=== PATIENT | male | born 1970 ===

== ENCOUNTER 2018-04-11 19:55 | Emergency (ER) | payer SELFPAY ==
[2018-04-11 20:35] VITALS: BP 140/98
--- NOTE | 2018-04-11 21:45 | UC ---
Upper Extremity HPI - HPI Summary HPI Summary: Patient complains of slipping while walking down stairs tonight at 7 PM with subsequent right shoulder pain. Denies any other pain or injury. Pain improves with ibuprofen. Medical history is none. 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 Onset/Duration: Lasting Hours Severity Initially: Mild Severity Currently: Mild Pain Intensity: 3 Pain Scale Used: 0-10 Numeric Character: Aching, Throbbing Aggravating Factor(s): Movement Alleviating Factor(s): OTC Meds Associated Signs And Symptoms: Positive: Negative - Allergies/Home Medications Allergies/Adverse Reactions: Allergies Allergy/AdvReac Type Severity Reaction Status Date / Time No Known Allergies Allergy Verified 04/11/18 20:35 Home Medications: Home Medications Ibuprofen 400 mg PO Q6HR PRN 04/11/18 [History Confirmed 04/11/18] PMH/Surg Hx/FS Hx/Imm Hx Previously Healthy: Yes - Surgical History Surgical History: None - Family History Known Family History: Positive: None - Social History Alcohol Use: None Substance Use Type: None Smoking Status (MU): Never Smoked Tobacco Review of Systems Constitutional: Negative Skin: Negative Eyes: Negative ENT: Negative Cardiovascular: Negative Gastrointestinal: Negative Genitourinary: Negative Motor: Decreased ROM - Right shoulder pain with abduction to shoulder level Neurovascular: Negative Musculoskeletal: Negative Neurological: Negative Psychological: Negative Is Patient Immunocompromised?: No All Other Systems Reviewed And Are Negative: Yes Physical Exam - Summary Physical Exam Summary: Patient flexes and extends right elbow, right wrist fingers of right hand freely. Patient able to abduct and abduct right shoulder without pain until level with right shoulder. Pain with abduction from shoulder level.. PMS intact distally. No erythema, ecchymosis, extra warmth, deformity, swelling noted to right shoulder. Triage Information Reviewed: Yes Appearance: Well-Appearing Vital Signs: Initial Vital Signs Temp 99 F 04/11/18 20:30 Pulse 62 04/11/18 20:30 Resp 16 04/11/18 20:30 BP 140/98 04/11/18 20:30 Pulse Ox 99 04/11/18 20:30 Vital Signs Reviewed: Yes Eye Exam: Normal Neck exam: Normal Respiratory Exam: Normal Cardiovascular Exam: Normal Abdominal Exam: Normal Musculoskeletal Exam: Normal Neurological Exam: Normal Psychological Exam: Normal Skin Exam: Normal Upper Extremity Course/Dx - Course Course Of Treatment: Patient complains of slipping while walking down stairs tonight at 7 PM with subsequent right shoulder pain. Denies any other pain or injury. Pain improves with ibuprofen. Medical history is none. Physical exam: Patient flexes and extends right elbow, right wrist fingers of right hand freely. Patient able to abduct and abduct right shoulder without pain until level with right shoulder. Pain with abduction from shoulder level.. PMS intact distally. No erythema, ecchymosis, extra warmth, deformity, swelling noted to right shoulder. X-ray negative for acute bony process. Rest, ice, ibuprofen. If pain does not improve within 5 days follow-up with orthopedics. Patient understands and approves of plan. Patient given sling. - Differential Dx/Diagnosis Provider Diagnoses: shoulder pain Discharge - Sign-Out/Discharge Documenting (check all that apply): Patient Departure All imaging exams completed and their final reports reviewed: Yes - negative for acute bony process - Discharge Plan Condition: Stable Disposition: HOME Patient Education Materials: Shoulder Sprain (ED), Shoulder Pain (ED) Referrals: Beck Bianchi MD [Primary Care Provider] - Rob Starr MD [Medical Doctor] - Additional Instructions: Ice, rest, ibuprofen for pain. If symptoms do not improve in 5 days follow-up with orthopedics Dr. Patel for further evaluation. - Billing Disposition and Condition Condition: STABLE Disposition: Home - Attestation Statements Provider Attestation: Per institutional requirements, I have reviewed the chart, however, I was not consulted specifically or made aware of this patient by the midlevel provider. I did not personally evaluate, interact with , or disposition this patient.
--- NOTE | 2018-04-12 07:45 | RAD ---
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 There is no fracture or dislocation. No other bone or joint abnormality is identified. IMPRESSION: No fracture of the right shoulder is noted. R0
== END 2018-04-11 21:53 | disposition home or self-care (01) ==
LOC: UCEAST 19:55
DX: M25.511 Pain in right shoulder (principal)
CPT/HCPCS: 99201; G0463